=== PATIENT | female | born 1940 | race African-American/Black ===

== ENCOUNTER 2020-09-29 22:13 | Emergency (ER) | payer OTHER ==
[~2020-09-29] VITALS: Ht 157.5 cm; Wt 55.3 kg
[2020-09-29 23:32] LABS: ABSOLUTE NEUTROPHILS 3.5 thou/uL (1.4-8.2); BASOPHILS 0.5 % (0.0-2.0); EOSINOPHILS 1.3 % (0.0-3.0); HEMATOCRIT 38.5 % (37.0-47.0); HEMOGLOBIN 12.4 gm/dL (12.0-15.0); MCHC 32.2 g/dL (28.0-37.0); MCV 93.3 fL (80.0-100.0); MONOCYTES 10.8 % (1.0-8.0); PLATELET COUNT 168 thou/uL (150-400); POLYS 66.4 % (36.0-66.0); RBC 4.12 mil/uL (4.20-5.00); RDW 13.7 % (10.5-14.5); WBC 5.3 thou/uL (4.0-11.0)
[2020-09-29 23:37] LABS: ANION GAP 6 mmol/L (7-16); BUN 23 mg/dL (7-18); CALCIUM 9.2 mg/dL (8.5-10.1); CHLORIDE 104 mmol/L (98-107); CO2 31 mmol/L (21-32); CREATININE 1.1 mg/dL (0.6-1.0); GLUCOSE 123 mg/dL (74-106); POTASSIUM 4.1 mmol/L (3.5-5.1); SODIUM 141 mmol/L (136-145)
[2020-09-29 23:51] LABS: ALBUMIN 3.2 g/dL (3.4-5.0); LIPASE 33 U/L (73-393); SGOT 22 U/L (15-37); SGPT 19 U/L (14-59); TOTAL BILIRUBIN 0.2 mg/dL (0.2-1.0); TROPONIN-I <0.06 ng/mL (<0.06)
[2020-09-30 00:45] LABS: URINE BILIRUBIN NEGATIVE (Negative); URINE BLOOD NEGATIVE (Negative); URINE CLARITY CLEAR; URINE COLOR YELLOW; URINE GLUCOSE-RANDOM* NEGATIVE (Negative); URINE KETONES TRACE (Negative); URINE NITRITE-REFLEX NEGATIVE (Negative); URINE PROTEIN (DIPSTICK) NEGATIVE (Negative); URINE SPECIFIC GRAVITY 1.025 (1.005-1.035)
[2020-09-30 00:56] LABS: URINE LEUKOCYTES-REFLEX 2+ (Negative)
[2020-09-30 01:14] LABS: BACTERIA-REFLEX 1-9 Few /HPF (None Seen); CASTS None Seen /LPF (None Seen); CRYSTALS None Seen /LPF (None Seen); MUCUS 0-3 Light strn/LPF (None Seen); SQUAMOUS 4-10 Moderate /LPF (0-3); URINE RBC 0-2 Rare /HPF (0-2)
[2020-09-30] MEDS ORDERED: KEFLEX500 M1 PO (01:20)
[2020-09-30 02:05] VITALS: BP 134/65
--- NOTE | 2020-09-30 07:16 | EKG ---
[address] [address] ELECTROCARDIOGRAM REPORT Name: BRICE JOSHUA Room #: [facility]#: [id number] Admission: 09/29/20 Attend Phys: Discharge: 09/30/20 Date of : 38 Report #: [id number] [facility] ED Test Date: 2020-09-29 Test Time: 22:42:29 Pat Name: BRICE JOSHUA Department: Room: Gender: F Hedis Abstractor: [email or web address] : 1940 Requested By: Filemon Lua Order Number: [id number] MD: Geo Downey Measurements Intervals Andrews Rate: 61 P: 53 WY: 233 QRS: -5 QRSD: 100 T: 19 QT: 387 QTc: 390 Interpretive Statements Sinus rhythm Prolonged WY interval No previous ECG available for comparison Electronically Signed On 09-30-2020 7:16:45 SAW FILER by Geo Downey [email or web address] <ELECTRONICALLY SIGNED> By: Geo Downey MD, [facility] 09/30/20 0716 [id number] Geo Downey MD, FACC /EPI
== END 2020-09-30 02:06 | disposition home or self-care (01) ==
LOC: ER 22:13
PROVIDERS: Emergency Medicine
DX: R53.1 Weakness (principal); Z20.828 Contact with and (suspected) exposure to other viral communicable diseases; R10.84 Generalized abdominal pain; G89.29 Other chronic pain

== ENCOUNTER 2021-09-10 17:48 | Emergency (ER) | payer OTHER ==
[~2021-09-10 17:48] MED LIST: KEFLEX500 M1 PO
== END 2021-09-10 18:15 | disposition left against medical advice (07) ==
LOC: ER 17:48
DX: M54.50 Low back pain, unspecified (principal); Z53.21 Procedure and treatment not carried out due to patient leaving prior to being seen by health care provider

== ENCOUNTER 2021-10-09 14:10 | Inpatient (IN) | payer OTHER ==
[~2021-10-09] VITALS: Ht 160 cm; Wt 46.1 kg
[2021-10-09] VITALS (18 sets, daily range): BP systolic 90–174; BP diastolic 50–131
--- NOTE | ~2021-10-09 | EMS ---
[place] [address] EMS Patient Care Report Name: BRICE JOSHUA Room #: PRE M.R.#: [id number] Admission: Attend Phys: Discharge: Date of : 38 Report #: [id number] THIS REPORT FOR: //name// Report Transmitted: 10/09/2021 14:01 EMS Care Summary [place], [place]/[facility] Incident [id number] @ 10/09/2021 13:49 Incident Location [address] [place] [address] Patient BRICE JOSHUA Female, 80 Years 1940 Patient Address [address] [place] [address] Patient History Back Surgery, Patient Allergies No known allergies, Patient Medications Morphine, Oxycodone, Chief Complaint Suspected stroke Disposition Transported Lights/[place] Dispatch Reason Stroke/CVA Transported To [facility] Narrative Arrived on scene to find our patient seated in a chair in the kitchen of the home. The calling alliance party stated he had been sitting been with the patient when she developed a sudden onset of right side facial droop, right sided paralysis, and an inability to speak. Calling alliance party stated this happened approximately [place] [id number] EMS Patient Care Report Name: BRICE JOSHUA Room #: PRE Sanam#: [id number] Admission: Attend Phys: Discharge: Date of : 38 Report #: [id number] 5-10 minutes prior to EMS arrival. Calling alliance party stated he did not know if the patient was on any blood thinners and stated the patient had not been complaining of any symptoms prior to the onset of the facial droop. Upon our arrival patient had significant right sided facial droop, complete right sided hemiplegia, aphasia, and a right sided gaze. Patient carried to the cot. Vital signs, 3 lead EKG, glucose, and IV access obtained. Transport initiated and patient transported to receiving facility and transferred to the CT scanner. Initial Vitals @14:04P: 64, @14:01P: 38, @14:04P: 138,BP: 145/73, @14:05P: 61,R: 12,BP: 132/70,GCS: 9,SpO2: 96,Revised Trauma: 11, @14:01P: 63,R: 12,BP: 132/70,GCS: 9,Glucose: 174,SpO2: 98,Revised Trauma: 11, Assessments @13:55MENTAL:SKIN:HEENT:Eyes: Right: Other,Eyes: Left: Other,Head/Face: Facial Droop,Neck/Airway: No Abnormalities,LUNG SOUNDS:Left Upper: No Abnormalities,Right Upper: No Abnormalities,Left Lower: No Abnormalities,Right Lower: No Abnormalities,ABDOMEN:Left Upper: No Abnormalities,Right Upper: No Abnormalities,Left Lower: No Abnormalities,Right Lower: No Abnormalities,PELVIS//GI:No Abnormalities,EXTREMITIES:Right Leg: Paralysis,Right Arm: Paralysis,Left Arm: No Abnormalities,Left Leg: No Abnormalities,PULSE:Radial: 2+ Normal,NEURO:Facial Droop,Weakness Right-Sided, Impression Stroke Procedures @13:55 ALS Assessment Response: UnchangedSucceeded @13:59 IV Therapy - Saline Lock 10cc (20 ga) Site: Antecubital-Left Response: UnchangedSucceeded @14:03 IV Therapy - Saline Lock 0cc (20 ga) Site: Antecubital-Right Response: UnchangedFailed @14:07 IV Therapy - Saline Lock 10cc (20 ga) Site: Forearm-Right Response: UnchangedSucceeded @13:59 3-Lead ECG Response: UnchangedSucceeded Timeline 13:47,Call Received 13:47,Dispatch Notified 13:49,Dispatched 13:50,En Route 13:54,[place] [address] EMS Patient Care Report Name: TRESBRICEDAHLIA CARRILLO Room #: [facility] MMan.#: [id number] Admission: Attend Phys: Discharge: Date of : 38 Report #: [id number] 13:55,At Patient 13:55,ALS Assessment,Response: UnchangedSucceeded, 13:59,IV Therapy - Saline Lock 10cc 20 ga Site: Antecubital-Left,Response: UnchangedSucceeded, 13:59,3-Lead ECG,Response: UnchangedSucceeded, 14:01,BP: / M,PULSE: 38,RR: R,SPO2: Ox,ETCO2: ,BG: ,PAIN: ,GCS: , 14:01,BP: 132/70 M,PULSE: 63,RR: 12 R,SPO2: 98 Ox,ETCO2: ,B,PAIN: ,GCS: 9, 14:01,Depart Scene 14:03,IV Therapy - Saline Lock 0cc 20 ga Site: Antecubital-Right,Response: UnchangedFailed, 14:04,BP: 145/73 M,PULSE: 138,RR: R,SPO2: Ox,ETCO2: ,BG: ,PAIN: ,GCS: , 14:04,BP: / M,PULSE: 64,RR: R,SPO2: Ox,ETCO2: ,BG: ,PAIN: ,GCS: , 14:05,BP: 132/70 M,PULSE: 61,RR: 12 R,SPO2: 96 Ox,ETCO2: ,BG: ,PAIN: ,GCS: 9, 14:07,IV Therapy - Saline Lock 10cc 20 ga Site: Forearm-Right,Response: UnchangedSucceeded, 14:09,At Destination 14:44,Call Closed Disclaimer v1.1 Copyright 2021 [employer] This EMS Care Summary contains data elements from the applicable legal record (which may be displayed differently). It is designed to provide pertinent information for the following purposes: continuity of care, clinical quality, and state data reporting. The complete legal record is available to ED staff and administrators of the receiving hospital in [employer] Patient Tracker. All data is provided "as is."
--- NOTE | ~2021-10-09 | EMS ---
[address] [address] EMS Patient Care Report Name: BRICE JOSHUA Room #: 170-8 ADM IN M.R.#: [id number] Admission: 10/09/21 Attend Phys: Cyndi Garnett Discharge: Date of : 38 Report #: [id number] THIS REPORT FOR: //name// Report Transmitted: 10/09/2021 15:04 EMS Care Summary [place], [place]/[facility] Incident [id number] @ 10/09/2021 13:49 Incident Location [address] [place] [address] Patient BRICE JOSHUA Female, 80 Years 1940 Patient Address [address] [place] [address] Patient History Back Surgery, Patient Allergies No known allergies, Patient Medications Morphine, Oxycodone, Chief Complaint Suspected stroke Disposition Transported Lights/[place] Dispatch Reason Stroke/CVA Transported To [facility] Narrative Arrived on scene to find our patient seated in a chair in the kitchen of the home. The calling libertarian stated he had been sitting been with the patient when she developed a sudden onset of right side facial droop, right sided paralysis, and an inability to speak. Calling libertarian stated this happened approximately [address] [address] EMS Patient Care Report Name: BRICE JOSHUA Room #: 170-8 ADM IN M.R.#: [id number] Admission: 10/09/21 Attend Phys: Cyndi Garnett Discharge: Date of : 38 Report #: [id number] 5-10 minutes prior to EMS arrival. Calling libertarian stated he did not know if the patient was on any blood thinners and stated the patient had not been complaining of any symptoms prior to the onset of the facial droop. Upon our arrival patient had significant right sided facial droop, complete right sided hemiplegia, aphasia, and a right sided gaze. Patient carried to the cot. Vital signs, 3 lead EKG, glucose, and IV access obtained. Transport initiated and patient transported to receiving facility and transferred to the CT scanner. Initial Vitals @14:04P: 64, @14:01P: 38, @14:04P: 138,BP: 145/73, @14:05P: 61,R: 12,BP: 132/70,GCS: 9,SpO2: 96,Revised Trauma: 11, @14:01P: 63,R: 12,BP: 132/70,GCS: 9,Glucose: 174,SpO2: 98,Revised Trauma: 11, Assessments @13:55MENTAL:SKIN:HEENT:Eyes: Right: Other,Eyes: Left: Other,Head/Face: Facial Droop,Neck/Airway: No Abnormalities,LUNG SOUNDS:Left Upper: No Abnormalities,Right Upper: No Abnormalities,Left Lower: No Abnormalities,Right Lower: No Abnormalities,ABDOMEN:Left Upper: No Abnormalities,Right Upper: No Abnormalities,Left Lower: No Abnormalities,Right Lower: No Abnormalities,PELVIS//GI:No Abnormalities,EXTREMITIES:Right Leg: Paralysis,Right Arm: Paralysis,Left Arm: No Abnormalities,Left Leg: No Abnormalities,PULSE:Radial: 2+ Normal,NEURO:Facial Droop,Weakness Right-Sided, Impression Stroke Procedures @13:55 ALS Assessment Response: UnchangedSucceeded @13:59 IV Therapy - Saline Lock 10cc (20 ga) Site: Antecubital-Left Response: UnchangedSucceeded @14:03 IV Therapy - Saline Lock 0cc (20 ga) Site: Antecubital-Right Response: UnchangedFailed @14:07 IV Therapy - Saline Lock 10cc (20 ga) Site: Forearm-Right Response: UnchangedSucceeded @13:59 3-Lead ECG Response: UnchangedSucceeded Timeline 13:47,Call Received 13:47,Dispatch Notified 13:49,Dispatched 13:50,En Route 13:54,[place] [address] EMS Patient Care Report Name: BRICE JOSHUA Room #: 170-8 ADM IN [facility]#: [id number] Admission: 10/09/21 Attend Phys: Cyndi Garnett Discharge: Date of : 38 Report #: [id number] 13:55,At Patient 13:55,ALS Assessment,Response: UnchangedSucceeded, 13:59,IV Therapy - Saline Lock 10cc 20 ga Site: Antecubital-Left,Response: UnchangedSucceeded, 13:59,3-Lead ECG,Response: UnchangedSucceeded, 14:01,BP: / M,PULSE: 38,RR: R,SPO2: Ox,ETCO2: ,BG: ,PAIN: ,GCS: , 14:01,BP: 132/70 M,PULSE: 63,RR: 12 R,SPO2: 98 Ox,ETCO2: ,B,PAIN: ,GCS: 9, 14:01,Depart Scene 14:03,IV Therapy - Saline Lock 0cc 20 ga Site: Antecubital-Right,Response: UnchangedFailed, 14:04,BP: 145/73 M,PULSE: 138,RR: R,SPO2: Ox,ETCO2: ,BG: ,PAIN: ,GCS: , 14:04,BP: / M,PULSE: 64,RR: R,SPO2: Ox,ETCO2: ,BG: ,PAIN: ,GCS: , 14:05,BP: 132/70 M,PULSE: 61,RR: 12 R,SPO2: 96 Ox,ETCO2: ,BG: ,PAIN: ,GCS: 9, 14:07,IV Therapy - Saline Lock 10cc 20 ga Site: Forearm-Right,Response: UnchangedSucceeded, 14:09,At Destination 14:44,Call Closed Disclaimer v1.1 Copyright 2021 [employer] This EMS Care Summary contains data elements from the applicable legal record (which may be displayed differently). It is designed to provide pertinent information for the following purposes: continuity of care, clinical quality, and state data reporting. The complete legal record is available to ED staff and administrators of the receiving hospital in [employer] Patient Tracker. All data is provided "as is."
--- NOTE | ~2021-10-09 | HC ---
[facility] [place] [address] CONSULTATION Name: BRICE JOSHUA Room #: 238-P ADM IN M.R.#: [id number] Admission: 10/09/21 Attend Phys: Cyndi Garnett Discharge: Date of : 38 Report #: [id number] THIS REPORT FOR: cc: Prasad Jacobson. Prasad Ayon. Evert Graham MD ~ DATE OF SERVICE: 10/10/2021 HISTORY OF PRESENT ILLNESS: This is an 80-year-old female patient who does not provide any reliable history. She appeared to be aphasic. I called the patient's son, he did not answer his phone, so I was not able to reach him. So the history is from the records as well as talking to the nurse looking after this patient. The patient has presented with a right side of the face starting to droop and speech difficulty. She was evaluated by [facility] and looks like they gave TPA to the patient. One of the record says she takes multiple medications for the pains including morphine and Oxycontin. REVIEW OF SYSTEMS: From the records. The patient apparently has a nerve stimulator in the back from the record. She has a thyroid problem. She has urinary problem. She has degenerative joint disease. She has chronic pain. That is all the history I can get on this patient from the records and trying to talk to her, which did not get us anywhere. PAST MEDICAL HISTORY: Positive for back pain for which she takes multiple medications. FAMILY HISTORY: Negative for early age stroke. SOCIAL HISTORY: She does not smoke or drink alcohol. PHYSICAL EXAMINATION: Indicate she is alert. She is responsive. She could not tell me what month it is. She in fact talks then she garbled her speech after that. She did not follow the instructions properly and persistently to carry out any worthwhile exam on this patient, but we tried and the best I can tell, she does not appear to have any definite cranial nerve abnormality. Visual field examination is tentative and facial exam is tentative, but does not look like she has any gross cranial nerve problem. Similarly, neuromuscular examination was carried out and does not appear that she had any focal deficit there. She does not have any carotid bruit, no meningeal sign. She does not appear to be ataxic. She did not cooperate with the fundus examination. There does not appear to be any atrial fibrillation. No respiratory difficulty. Blood pressure is 126/59, pulse is 54 and temperature is 98.3. Labs indicate a white count of 4.9 and potassium of 3.4. She has no edema. Pulses appeared to be palpable, also difficult to feel. She is moderately built individual. I think her hearing and vision looks adequate. She had a CT which [facility] [address] [place] [address] CONSULTATION Name: BRICE JOSHUA Room #: 238-P [facility] IN M.R.#: [id number] Admission: 10/09/21 Attend Phys: Cyndi Garnett Discharge: Date of : 38 Report #: [id number] showed a question of stroke on the left side, CT angiogram, which is mostly unremarkable. IMPRESSION: This patient's clinical presentation is consistent with an ischemic event in the left cerebral hemisphere. She received TPA. I do not think she can have an MRI if the history of having a nerve stimulator is correct. We will continue to make an effort to reach the family. Otherwise, we have to presume that it was a stroke and wait for other workup. We will repeat the CT 24 hours after the TPA and then can start her on antiplatelet therapy with aspirin as well as probably DVT prophylaxis. She will be evaluated by PT, OT and further workup will depend upon that. I spent more than 50 minutes of time taking care of this patient and majority was spent in coordinating care, reviewing the records, reviewing the imaging studies. I will continue to make an effort to reach the family. By: 1442 22 Evert Mahoney MD /nt
[2021-10-09 14:34] LABS: ABSOLUTE NEUTROPHILS 2.8 thou/uL (1.4-8.2); BASOPHILS 0.9 % (0.0-2.0); EOSINOPHILS 0.4 % (0.0-3.0); HEMATOCRIT 43.8 % (37.0-47.0); HEMOGLOBIN 13.8 gm/dL (12.0-15.0); LYMPHOCYTES 29.4 % (24.0-44.0); MCH 30.3 pg (26.0-34.0); MCHC 31.5 g/dL (28.0-37.0); MCV 96.3 fL (80.0-100.0); MONOCYTES 11.9 % (1.0-8.0); PLATELET COUNT 166 thou/uL (150-400); POLYS 57.4 % (36.0-66.0); RBC 4.54 mil/uL (4.20-5.00); RDW 14.2 % (10.5-14.5); WBC 4.9 thou/uL (4.0-11.0)
[2021-10-09 14:48] LABS: APTT 28.5 Seconds (24.5-32.8); INR 1.14; PROTIME 12.4 Seconds (10.5-12.1)
[2021-10-09] MEDS ORDERED: OXYCODONE HCL10 MG PO (15:13)
[2021-10-09] MEDS ORDERED: MS CONTIN 30 MG30 M1 PO (15:13)
[2021-10-09] MEDS ORDERED: SOLIFENACIN SUCC5 MG PO (15:14)
[2021-10-09] MEDS ORDERED: LEVOTHYROXINE75 MCG PO (15:14)
[2021-10-09] MEDS ORDERED: OXYBUTYNIN 5 MG5 M2 PO (15:14)
[2021-10-09 16:29] LABS: URINE BILIRUBIN NEGATIVE (Negative); URINE BLOOD 2+ (Negative); URINE CLARITY SL CLOUDY; URINE COLOR YELLOW; URINE GLUCOSE-RANDOM* NEGATIVE (Negative); URINE KETONES NEGATIVE (Negative); URINE LEUKOCYTES-REFLEX TRACE (Negative); URINE NITRITE-REFLEX NEGATIVE (Negative); URINE PROTEIN (DIPSTICK) NEGATIVE (Negative); URINE UROBILINOGEN 0.2 E.U./dl (0.2-1.0)
[2021-10-09 16:48] LABS: CASTS None Seen /LPF (None Seen); MUCUS 4-6 Moderate strn/LPF (None Seen); SQUAMOUS 0-3 Few /LPF (0-3); URINE WBC-REFLEX 0-5 Rare /HPF (0-5)
[2021-10-09 16:49] LABS: BACTERIA-REFLEX 1-9 Few /HPF (None Seen); CRYSTALS None Seen /LPF (None Seen)
[2021-10-09 17:28] LABS: ALBUMIN 3.4 g/dL (3.4-5.0); CALCIUM 8.5 mg/dL (8.5-10.1); CREATININE 0.7 mg/dL (0.6-1.0); POTASSIUM 3.4 mmol/L (3.5-5.1); TOTAL BILIRUBIN 0.3 mg/dL (0.2-1.0); TOTAL PROTEIN 6.8 g/dL (6.4-8.2)
--- NOTE | 2021-10-09 19:29 | NUR ---
PATIENT ARIVED TO UNIT AT 1658. REPORT WAS RECEIVED AND ASSESSMENTS WERE DONE AND CARTED. PATIENT IS TRYING TO PULL THINGS OFF. SHE WAS ABLE TO GET HER 02 SENSOR OFF TO START WAS REPLACED. NEXT SHE WAS ABLE TO GET HER LEADS OFF AND IV OUT AND 02 SENSOR OFF. REPORT WAS GIVEN TO NIGHT RN.PATIENT IS RESTING IN BED WITH CALL DUBOSE IN REACH.
--- NOTE | 2021-10-09 20:42 | EKG ---
[place] [address] [place] [address] ELECTROCARDIOGRAM REPORT Name: BRICE JOSHUA Room #: 238-P ADM IN M.R.#: [id number] Admission: 10/09/21 Attend Phys: Cyndi Garnett Discharge: Date of : 38 Report #: [id number] [facility] ED Test Date: 2021-10-09 Test Time: 15:00:26 Pat Name: BRICE JOSHUA Department: Room: 238 Gender: F Ui Architect: MAHAMED : 1940 Requested By: Filemon Lua Order Number: [id number] MD: Erasmo Ramires Measurements Intervals Mathias Rate: 85 P: RI: QRS: 12 QRSD: 183 T: 45 QT: 456 QTc: 543 Interpretive Statements Sinus rhythm with first-degree AV block Baseline artifact Compared to ECG 09/29/2020 22:42:29 No gross differences Electronically Signed On 10-09-2021 20:41:35 CAFETERIA CLERK by Erasmo Ramires [email or web address] <ELECTRONICALLY SIGNED> By: Erasmo Ramires MD, [facility] 10/09/212040 1500 [facility] Erasmo Ramires MD, FACC /EPI
[2021-10-10] VITALS (36 sets, daily range): BP systolic 116–177; BP diastolic 44–105
--- NOTE | 2021-10-10 19:53 | NUR ---
PATIENT CAN NOT STILL SAY THE RIGHT WORD FOR THINGS. SHE KNOW HER NAME AND DATE OF WHEN TOLD THEM BUT CAN NOT TELL YOU WHAT THEY ARE. SHE IS ABLE TO MOVE ALL EXTREMITIES WITH OUT PROBLEMS. SHE WAS ABLE TO MOVE HER SELF FROM THE BED TO THE CT TABLE AND BACK TO THE BED. SHE IS FORGETFUL AND PULLED OUT HER IV, SHE HAS TAKEN OFF THE BP CUFF AND SCD'S A FEW TIMES TODAY WELL. NEW IV WAS PLACED IN THE RIGHT FORARM 22G AND ARM WAS WRAPED TO TRY AND HELP WITH THIS. FAMILY DID CALL TODAY AND SON WAS GIVEN UPDATE. PATIENT IS NPO AT THIS TIME, I DID NOT TRY AND LET HER STAND AT BED SIDE BUT SHE DID HAVE EQUAL PRESSURE WHEN PUSHING ON HANDS AND SQUEEZING MY HANDS. DEISY IS RESTING IN BED WITH CALL DUBOSE IN REACH.
[2021-10-11] VITALS (37 sets, daily range): BP systolic 116–161; BP diastolic 45–99
[2021-10-11 04:13] LABS: ALBUMIN 2.9 g/dL (3.4-5.0); ANION GAP 6 mmol/L (7-16); BUN 5 mg/dL (7-18); CHLORIDE 108 mmol/L (98-107); CHOLESTEROL 116 mg/dL (<200); CO2 29 mmol/L (21-32); CREATININE 0.7 mg/dL (0.6-1.0); GLUCOSE 146 mg/dL (74-106); HDL CHOLESTEROL 40 mg/dL (>40); LDL CHOLESTEROL 67 mg/dL (<100); MAGNESIUM 2.1 mg/dL (1.8-2.4); PHOSPHORUS 2.8 mg/dL (2.5-4.9); POTASSIUM 3.3 mmol/L (3.5-5.1); SODIUM 143 mmol/L (136-145); TC:HDL 2.9 Ratio (Not establshd); TRIGLYCERIDE 48 mg/dL (<150); VLDL 10 mg/dL (<40)
[2021-10-11 04:18] LABS: SERUM ASSESSMENT Clear
--- NOTE | 2021-10-11 06:30 | NUR ---
PATIENT SLOWLY PROGRESSING TOWARD GOALS AND POC. PATIENT NIH SCORE 4, CONTINUES TO PRESENT DYSPHASIC. PATIENT ALERT AND COOPERATIVE BUT CONFUSED. PATIENT URINE OUTPUT ADEQUATE AND NO BM OVERNOC. PATIENT NSB THROUGHOUT MOST OF THE NOC BUT WHEN AWAKE HR 50-60S. PATIENT REMAINS NPO. WILL CONTINUE TO MONITOR AND FOLLOW POC.
--- NOTE | 2021-10-11 06:37 | NUR ---
SPOKE WITH Sg SEGOVIA D/T PATIENT K+ LOW. ORDERS GIVEN FOR ONETIME KCL IVPB.
--- NOTE | 2021-10-11 08:00 | NUR ---
80 year old family. Covid +. Enhanced Isolation. Syncopal, weakness, fatigue facial drooping and unable to speak. Family reported she was fine the day before. Unable to visit with Danika related to isolation for covid. Possible will having MRI of her head. Speech eval today. Will cont. following as needed.
--- NOTE | 2021-10-11 09:43 | NUR ---
DISCUSSED PLAN FOR MRI [facility]. PT WILL HAVE TO BE THE LAST SCAN OF THE DAY DUE TO POSITIVE COVID STATUS, POSSIBLY LATER TODAY DEPENDING ON NUMBER OF PATIENTS REQUIRING SCANS.
--- NOTE | 2021-10-11 09:46 | NUR ---
0845: DISCUSSED PATIENT WITH DR. DIAZ DURING INTERDISCIPLINARY ROUNDS. NOTIFIED HIM PT HAD DIFFICULTY WITH NIGHT RN DURING ATTEMPT TO ADMINISTER ONE MEDICATION. ALSO DISCUSSED PLANS TO HAVE ELEVATOR MECHANIC APPRENTICE REEVAL SWALLOW TODAY. PLAN FOR TRANSFER TO THE FLOOR IF BED BECOMES AVAILABLE.
--- NOTE | 2021-10-11 10:40 | NUR ---
RN ATTEMTPED TO CALL PT'S SON, ANIGE, WITH TELEPHONE NUMBER IN PT'S CHART, . NUMBER IS NOT CURRENTLY IN SERVICE. PT HAS HISTORY OF NERVE STIMULATOR, THUS UNSURE IF IT IS STILL PRESENT AND/OR MRI COMPATIBLE. PT UNABLE TO PROVIDE THIS HISTORY AT THIS TIME DUE TO CURRENT CONDITION. MRI NOTIFIED.
--- NOTE | 2021-10-11 12:12 | NUR ---
SPEECH THERAPY AT BEDSIDE
--- NOTE | 2021-10-11 14:28 | NUR ---
RN ATTEMTPED TO CALL PT'S SON, ANGIE [phone] AT THIS TIME WITH NO ANSWER. WILL ATTEMPT AGAIN AT LATER TIME
--- NOTE | 2021-10-11 14:41 | NUR ---
1440: RN CALLED PT'S SON, ANGIE. UPDATED HIM ON CURRENT PLAN OF CARE INCLUDING DIET CHANGES, PT, OT EVALS, AND PLAN FOR TRANSFER TO FLOOR ONCE BED AVAIALBLE.
--- NOTE | 2021-10-11 18:55 | NUR ---
WHEN RN DISCUSSED POC WITH PT'S SON ANGIE, HE CONFIRMED THAT PT HAS A NERVE STIMULATOR IN HER BACK. RN EDUCATED HIM THAT PT IS UNABLE TO HAVE MRI DUE TO THIS, HE VERBALIZED UNDERSTANDING.
--- NOTE | 2021-10-11 21:15 | NUR ---
ORDERS FOR TRANSFER - REPORT CALLED TO 3W. PATIENT BELONGINGS AND CHART SENT WITH PATIENT.
--- NOTE | 2021-10-11 22:02 | NUR ---
PATIENT PROGRESSING WELL TOWARDS GOALS AND POC. NIH SCORE 3. PATIENT STILL CONTINUES TO BE APHASIC. PATIENT CAN ANSWER YES/NO QUESTIONS AND IS COOPERATIVE WITH CARE. PATIENT MOVES ALL EXTREMITIES WELL. ASSISTED PATIENT IN THE ADMINISTRATION OF NIGHTLY MEDS AND GIVEN SMALL SIPS OF WATER - TOOK SEVERAL TRIES FOR PATIENT TO SWALLOW PILLS.
[2021-10-12 03:25] VITALS: BP 158/90
--- NOTE | 2021-10-12 06:27 | NUR ---
Patinet making progress towards outcome goals. Vital signs and rhythm stable. Elena catheter removed at 0615. Tolerated thin liquids, IVFluids infusing. Expressive aphasia, moving all extremities without difficulty. Managed to pull IV out and cannot recall she did it. High fall risks, fall precautions in place. Rehab consult.
[2021-10-12 08:24] VITALS: BP 146/80
--- NOTE | 2021-10-12 09:46 | 2DMMODE ---
[facility] [address] [address] 2 D/M-MODE ECHOCARDIOGRAM Name: BRICE JOSHUA Room #: 364-P ADM IN M.R.#: [id number] Admission: 10/09/21 Attend Phys: Cyndi Garnett Discharge: Date of : 38 Report #: [id number] THIS REPORT FOR: cc: Ratnesh. MD Kavon Jacobson Ratnesh. MD Santiago, Patrick MD [facility] ~ APPROVED REPORT Study performed: 10/12/2021 08:54:34 EXAM: Limited 2D, Doppler, and color-flow Echocardiogram Patient Location: Bedside Room #: 364 Status: routine BSA: 1.45 HR: 70 bpm BP: 146/80 mmHg Rhythm: NSR Other Information Study Quality: Adequate Technically limited study due to uncooperative patient. Patient movement. Indications CVA, HTN, COVID + Echo Enhancing Agent Indication: Rule out Shunt Agent(s) / Amount(s) Used: Agitated Saline 7 cc 2D Dimensions IVSd: 9.63 (7-11mm) LVDd: 32.39 mm PWd: 9.51 (7-11mm) LVDs: 20.61 (25-40mm) Aortic Root: 28.53 mm Aortic Valve AoV Peak Kehinde.: 1.00 m/s AO Peak Gr.: 4.81 mmHg Mitral Valve E/A Ratio: 0.7 MV Decel. Time: 222.10 ms [facility] [address] [place] [address] 2 D/M-MODE ECHOCARDIOGRAM Name: BRICE JOSHUA Room #: 364-P ADM IN M.R.#: [id number] Admission: 10/09/21 Attend Phys: yCndi Sanchez Discharge: Date of : 36 Report #: [id number] MV E Max Kehinde.: 0.60 m/s MV A Kehinde.: 0.86 m/s MV PHT: 64.41 ms Tricuspid Valve TR Peak Kehinde.: 2.38 m/s RAP Estimate: 5.00 mmHg TR Peak Gr.: 23.00 mmHg PA Pressure: 28.00 mmHg Left Ventricle The left ventricle is normal size. There is normal LV segmental wall motion. Mild concentric left ventricular hypertrophy. Left ventricular systolic function is normal. LVEF is 60-65%. Mild diastolic dysfunction is present. Right Ventricle The right ventricle is normal size. The right ventricular systolic function is normal. Atria The left atrium size is normal. The right atrium size is normal. No shunting noted with contrast bubble injection. Aortic Valve The aortic valve is normal in structure. No aortic regurgitation is present. There is no aortic valvular stenosis. Mitral Valve The mitral valve is normal in structure. Trace mitral regurgitation. Tricuspid Valve The tricuspid valve is normal in structure. Mild to moderate tricuspid regurgitation. Estimated PAP is 28mmHg. Pulmonic Valve Pulmonic valve is not well visualized. Great Vessels The aortic root is normal in size. IVC is normal in size and collapses >50% with inspiration. Pericardium There is no pericardial effusion. <Conclusion> [facility] [address] [place] [address] 2 D/M-MODE ECHOCARDIOGRAM Name: TRESBRICE GERARDO Room #: 364-P [facility] IN M.R.#: [id number] Admission: 10/09/21 Attend Phys: Cyndi Sanchez Discharge: Date of : 36 Report #: [id number] Normal left ventricle size with mild concentric hypertrophy Hyperdynamic systolic function ejection fraction 65% Grade 1 diastolic dysfunction Normal right ventricular size/function Normal atrial size Normal aortic/mitral valve structure and function No pericardial effusion Mild tricuspid valve insufficiency Pulmonary systolic pressure estimated 28 mmHg Normal aortic root size. No shunt detected by bubble study <ELECTRONICALLY SIGNED> By: Geo Downey MD, FACC 10/12/21945 5 5 Geo Downey MD, FACC /INF
--- NOTE | 2021-10-12 10:03 | EKG ---
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 10/12/21923 5 5 Geo Downey MD, FACC /EPI
[2021-10-12] MEDS ORDERED: ENOXAPARIN40 MG/0.4 SUBQ (11:43)
[2021-10-12] MEDS ORDERED: LIPITOR40 MG PO (11:43)
[2021-10-12] MEDS ORDERED: ADULT LOW DOSE81 MG PO (11:44)
--- NOTE | 2021-10-12 14:07 | NUR ---
DISCHARGE NOTE: COTY reviewed chart and spoke with nursing and attending physician. Pt was transferred to 3W from ICU. Pt remains in Enhanced Isolation due to COVID. Pt is afebrile and on room air. 5N consult ordered. COTY notified by 5N director of cardiac rehabilitation that pt has been accepted to 5N. SW updated attending physician. Pt is medically stable to discharge to 5N today. Pt will remain on 3W until out of isolation. COTY placed call to pt's room. No answer. COTY spoke with pt's on, Marky, via phone to provide update. Marky is agreeable with plan to stay for rehab. Today is pt's birthday. Marky asked if he can visit or bring pt something for her birthday. COTY explained visitor policy for COVID pts. COTY requested nursing call Marky to discuss if pt is able to have items brought to her. Discharge orders completed for pt to be made rehab status today. COTY explained to Marky that the rehab team conference will on afternoon. Discharge plan is for pt to discharge home when medically stable. Rehab CM to follow and assist as needed with discharge planning.
== END 2021-10-12 18:12 | DRG 61 ==
LOC: ER 14:10 → ICU 15:17 → EROBS 15:17 → 3W 15:17 → ICU 16:58 → 3W 10-11 21:27
PROVIDERS: Emergency Medicine; ADMIT Hospitalist; ATTEND Hospitalist
DX: I63.9 Cerebral infarction, unspecified (principal); U07.1 COVID-19; G81.94 Hemiplegia, unspecified affecting left nondominant side; G89.29 Other chronic pain; M47.9 Spondylosis, unspecified; M54.9 Dorsalgia, unspecified; R53.81 Other malaise; R47.01 Aphasia; R48.2 Apraxia; Z79.82 Long term (current) use of aspirin; Z82.49 Family history of ischemic heart disease and other diseases of the circulatory system; Z79.899 Other long term (current) drug therapy
CPT/HCPCS: 10078; 10879

== ENCOUNTER 2021-10-12 11:56 | Inpatient (IN) | payer OTHER ==
[~2021-10-12] VITALS: Ht 165.1 cm; Wt 46.7 kg
[~2021-10-12 11:56] MED LIST changes: +ADULT LOW DOSE81 MG PO; +ENOXAPARIN40 MG/0.4 SUBQ; +LEVOTHYROXINE75 MCG PO; +LIPITOR40 MG PO; +MS CONTIN 30 MG30 M1 PO; +OXYBUTYNIN 5 MG5 M2 PO; +OXYCODONE HCL10 MG PO; +SOLIFENACIN SUCC5 MG PO
[2021-10-12 19:51] VITALS: BP 153/68
--- NOTE | 2021-10-13 05:45 | NUR ---
ASSUMED CARE OF PT AT 1900, AT WHICH TIME PT WAS SLEEPING AND WAS NOT PARTICIPATING IN ADMISSION ASSESSMENT QUESTIONS. PT WITH EXPRESSIVE APHASIA, BUT CONTINUED TO TELL THIS DIGITAL SOLUTIONS ARCHITECT TO "JUST GO AWAY" WHEN ASKING ADMISSION QUESTIONS. VITAL SIGNS STABLE, ON ROOM AIR. UP WITH SBA TO BSC WITH STEADY GAIT. DIFFICULTY SWALLOWING PILLS. MEDICATIONS ABLE TO BE CRUSHED WERE TAKEN IN APPLESAUCE WITH NO DIFFICULTY, BUT MEDS NOT ABLE TO BE CRUSHED REQUIRED EXTENSIVE PROMPTING AND CUEING FOR PT TO BE ABLE TO SWALLOW. WILL CONTINUE TO OBSERVE FOR CHANGES
[2021-10-13 06:17] LABS: HEMATOCRIT 37.5 % (37.0-47.0); HEMOGLOBIN 12.5 gm/dL (12.0-15.0); MCH 30.8 pg (26.0-34.0); MCHC 33.4 g/dL (28.0-37.0); MCV 92.4 fL (80.0-100.0); RBC 4.06 mil/uL (4.20-5.00); RDW 13.7 % (10.5-14.5); WBC 7.1 thou/uL (4.0-11.0)
[2021-10-13 06:30] LABS: CALCIUM 8.1 mg/dL (8.5-10.1); CREATININE 0.9 mg/dL (0.6-1.0); POTASSIUM 3.2 mmol/L (3.5-5.1)
[2021-10-13 07:04] LABS: FOLIC ACID 19.2 ng/mL (8.6-58.9)
[2021-10-13 08:17] VITALS: BP 121/90
--- NOTE | 2021-10-13 10:03 | EKG ---
[address] [place] [address] ELECTROCARDIOGRAM REPORT Name: BRICE JOSHUA Room #: 364-P ADM IN M.R.#: [id number] Admission: 10/12/21 Attend Phys: Buddy Collins MD Discharge: Date of : 36 Report #: [id number] [facility] Test Date: 2021-10-13 Test Time: 09:36:21 Pat Name: BRICE JOSHUA Department: Room: 364 P Gender: F Business Coordinator: BYRON : 1940 Requested By: Elaine Davey Order Number: [id number] MD: Geo Downey Measurements Intervals [place] Rate: 59 P: 78 OR: 230 QRS: -6 QRSD: 107 T: 22 QT: 399 QTc: 396 Interpretive Statements Sinus rhythm Prolonged OR interval Borderline repolarization abnormality Compared to ECG 10/12/2021 08:16:29 No significant changes Electronically Signed On 10-13-2021 10:02:49 REINFORCEMENT MAKER by Geo Downey [email or web address] <ELECTRONICALLY SIGNED> By: Geo Downey MD, [facility] 10/13/21 1002 0936 5 Geo Downey MD, FACC /EPI
--- NOTE | 2021-10-13 11:20 | NUR ---
INITIAL REHAB ASSESSMENT: Pt was admitted to rehab on 10/12. Pt will remain on 3W until out of Enhanced Isolation. Pt had positive COVID test on 10/09. Per previous CM note, pt has received the [employer] COVID vaccination. Pt is afebrile and on room air. Pt with new CVA. SW placed call to pt's room. No answer. Pt lives at home with her son, Marky. Prior to admission, pt had been independent with ADLs. Pt's son has recently started assisting pt with her finances. There is one step to enter their home and about 20 steps down to the basement. Pt's PCP is Dr. Prasad Jacobson at [facility]. SW spoke with pt's son, Marky, yesterday. Provided update regarding admission to rehab while on 3W. SW notified Marky that team conferences are on afternoons. Discharge timeframe to be discussed. Pt's son verbalized understanding. Plan is for pt to discharge home when medically stable. CM/SW following to assist as needed with discharge planning.
[2021-10-13 11:35] VITALS: BP 107/61
[2021-10-13 15:52] VITALS: BP 106/51
--- NOTE | 2021-10-13 18:39 | NUR ---
ASSUMED PATIENT CARE AT 0700. A/O X3. FLOW COMMAND. PORGRESSING TOWARDS POC GOALS.
[2021-10-13 19:30] VITALS: BP 146/70
[2021-10-14 06:07] LABS: GLYCOHEMOGLOBIN (HGB A1C) 5.9 % (4.8-5.6)
--- NOTE | 2021-10-14 06:50 | NUR ---
PROGRESS PT A/O X4. UP WITH SBA. VOIDING QS DARK FOUL SMELLING URINE. VSS PT SLEPT MOST OF SHIFT USES CALL LIGHT APPROPRIATELY CONTINUE POC.
[2021-10-14 07:38] VITALS: BP 124/57
--- NOTE | 2021-10-14 09:50 | EKG ---
[address] [place] [address] ELECTROCARDIOGRAM REPORT Name: BRICE JOSHUA Room #: 364-P ADM IN M.R.#: [id number] Admission: 10/12/21 Attend Phys: Buddy Collins MD Discharge: Date of : 36 Report #: [id number] [facility] Test Date: 2021-10-14 Test Time: 09:06:45 Pat Name: BRICE JOSHUA Department: Room: 364 P Gender: F Line Department Supervisor: BYRON : 1940 Requested By: Elaine Davey Order Number: [id number] : Geo Downey Measurements Intervals [place] Rate: 55 P: 83 IA: 227 QRS: 17 QRSD: 88 T: 21 QT: 385 QTc: 369 Interpretive Statements Sinus rhythm Prolonged IA interval Probable left atrial enlargement Borderline T wave abnormalities Compared to ECG 10/13/2021 09:36:21 T-wave abnormality now present Electronically Signed On 10-14-2021 9:50:01 COMPANY MARKER by Geo Downey [email or web address] <ELECTRONICALLY SIGNED> By: Geo Downey MD, [facility] 10/14/2150 09 5 Geo Downey MD, FAC /EPI
--- NOTE | 2021-10-14 13:53 | NUR ---
Team meeting, recommendation: Covid enhanced isolation. dysphasia. Max assist with toilet, needs assist with cleaning. impulsive. no wounds. speaks slow. diet Mech soft and thin liquids. UA to check for UTI. Send [facility] referral if family would be able to provide transportation at ut. Reteam next week and dc on 10/21/21 wtih outpt speech if cannot start right away at [facility].
--- NOTE | 2021-10-14 18:17 | NUR ---
1805 - post void residual = 0
--- NOTE | 2021-10-14 18:22 | NUR ---
PATIENT A&OX4, UNABLE TO CONSISTANLY COMMUNICATE NEEDS, FREQUENT CHECKS BY STAFF. OOB TO CHAIR MOST OF THE DAY, SBA FOR AMBULATION NEEDS. VSS, RA. RECIEVED ORDERS FROM MD DUARTE FOLLOWS: 1. D/C BLOOD SUGAR CHECKS 2. TOILET TRAINING [id number] WHILE AWAKE 3. PREFORM POST VOID RESIDUAL BLADDER SCAN AFTER EACH VOID. NURSING COMMUNICATIONS ENTERED, WILL PASS ON IN SHIFT REPORT. FAMILY REACHED OUT TO 5N TO SPEAK TO DOCTOR AFTER HE HAD ALREADY COMPLETED HIS SHIFT. PER TUNDE, SHE WILL CONTACT MD IN AM AND ARRANGE CONTACT WITH FAMILY.
[2021-10-14 18:40] LABS: URINE BILIRUBIN NEGATIVE (Negative); URINE BLOOD 3+ (Negative); URINE CLARITY HAZY; URINE COLOR YELLOW; URINE GLUCOSE-RANDOM* NEGATIVE (Negative); URINE KETONES NEGATIVE (Negative); URINE LEUKOCYTES-REFLEX 2+ (Negative); URINE NITRITE-REFLEX NEGATIVE (Negative); URINE PROTEIN (DIPSTICK) 1+ (Negative); URINE SPECIFIC GRAVITY >= 1.030 (1.005-1.035); URINE UROBILINOGEN 0.2 E.U./dl (0.2-1.0)
[2021-10-14 18:53] LABS: SQUAMOUS 0-3 Few /LPF (0-3); URINE WBC-REFLEX >25 Many /HPF (0-5)
[2021-10-14 18:54] LABS: BACTERIA-REFLEX >30 Many /HPF (None Seen); CASTS None Seen /LPF (None Seen)
[2021-10-14 18:55] LABS: CRYSTALS None Seen /LPF (None Seen)
[2021-10-14 20:08] VITALS: BP 147/64
--- NOTE | 2021-10-15 01:15 | NUR ---
PROGRESS PT PROGRESSING TOWARDS GOALS. UP WITH SBA. GAIT STEADY VOIDING PER BSC. BLADDER SCANNED AND 210 CC'S NOTED, VOIDED 250 CC'S AND PVR WAS 0 CC'S. LUNGS CLEAR, VSS. STILL HAVING DIFFICULTY WORD FINDING AND EXPRESSING NEEDS. BUT EATING AND DRINKING WITHOUT DIFFICULTY. IN ORDERED A HEAD CT FOR TOMORROW AND SOME LABS. CONTINUE POC.
[2021-10-15 08:30] VITALS: BP 141/70
--- NOTE | 2021-10-15 10:44 | EKG ---
[address] [place] [address] ELECTROCARDIOGRAM REPORT Name: BRICE JOSHUA Room #: 364-P ADM IN M.R.#: [id number] Admission: 10/12/21 Attend Phys: Buddy Collins MD Discharge: Date of : 38 Report #: [id number] [facility] Test Date: 2021-10-15 Test Time: 10:38:06 Pat Name: BRICE JOSHUA Department: Room: 364 P Gender: F Senior Gl Accountant: CORRY : 1940 Requested By: Elaine Davey Order Number: [id number] MD: Michoacano Fay Measurements Intervals [place] Rate: 54 P: 78 AR: 221 QRS: 8 QRSD: 95 T: 34 QT: 381 QTc: 361 Interpretive Statements Sinus rhythm Prolonged AR interval Consider left atrial abnormality Nonspecific ST segment abnormalities Compared to ECG 10/14/2021 09:06:45 No change Electronically Signed On 10-15-2021 10:44:18 PELLETISING EXTRUDER OPERATOR by Michoacano Fay [email or web address] <ELECTRONICALLY SIGNED> By: Michoacano Fay MD 10/15/21 1044 1038 MD LYRIC Degroot
--- NOTE | 2021-10-15 15:13 | NUR ---
Cm spoke with patient via phone call related to covid isolation. She agrees with the discharge plan. Cm left message for son steven to return cm call. will cont following as needed.
--- NOTE | 2021-10-15 18:41 | NUR ---
ASSUMED [PATIENT CARE AT 0700. ALERT. ENCOURAGED FLUID TAKING. POOR APPATITE. SLOWLY TOWARDS POC GOALS.
[2021-10-15 19:55] VITALS: BP 121/63
--- NOTE | 2021-10-15 20:06 | NUR ---
PT UP IN CHAIR, CHAIR ALARM, BLANKET WRAPPED AROUND HER SHOULDERS. PT NOT VERBAL, NODDING HEAD TO ANSWER DIRECT QUESTIONS BY NURSE. PT DID NOT EAT DINNER.
--- NOTE | 2021-10-16 04:23 | NUR ---
ASSUMED PT CARE AT APPROX. 0030. RECEIVED HANDOFF REPORT FROM JOEY SOMMERS. PT IS ALERT AND ORIENTED X 2 AND EXPERIENCING EXPRESSIVE APHASIA. PT IS ABLE TO ANSWER YES OR NO QUESTIONS BUT IS FORGETFUL AND SLOW TO ANSWER QUESTIONS. PT IS UP TO BATHROOM OR BSC WITH SBA. PT IS COORDINATED AND HAS A STEADY GAIT. ALL NEEDS ARE MET AT THIS TIME. WILL CONTINUE TO OBSERVE FOR ANY CHANGES.
[2021-10-16 07:33] VITALS: BP 129/63
--- NOTE | 2021-10-16 18:15 | NUR ---
assumed care of pt at 0700. no apparent distress w/ expressive aphasia. able to answer simple questions and cooperate w/ care. up w/ steady gait to bathroom. vitals stable. moderate appetite. remains on room air. no other changes to report.
[2021-10-16 20:15] VITALS: BP 121/62
[2021-10-17 04:45] VITALS: BP 112/64
--- NOTE | 2021-10-17 05:32 | NUR ---
Pt. able to verbalized name and she is at [facility]. Still has expressive aphasia. She nodded her head when asked if she slept well. Cont. on enhanced precaution,afebrile. Tolerating room air well. Bed alarm on for safety. making some progress towardes care plan goals.
[2021-10-17 07:18] VITALS: BP 127/58
[2021-10-17 19:38] VITALS: BP 121/61
[2021-10-17 20:45] VITALS: BP 121/68
--- NOTE | 2021-10-18 07:27 | NUR ---
Patient progressing towards outcome goals. Gait is steady, fal precautions due to forgetfulness. Vital signs stable. Appetite poor, No difficuty swallowing whole pills with water.
[2021-10-18 10:23] VITALS: BP 143/66
--- NOTE | 2021-10-18 15:15 | EKG ---
[address] [employer] [place] [address] ELECTROCARDIOGRAM REPORT Name: BRICE JOSHUA Room #: 364-P ADM IN M.R.#: [id number] Admission: 10/12/21 Attend Phys: Buddy Collins MD Discharge: Date of : 36 Report #: [id number] [facility] Test Date: 2021-10-18 Test Time: 09:38:28 Pat Name: BRICE JOSHUA Department: Room: 364 P Gender: F Mill Oiler: BYRON : 1940 Requested By: Elaine Davey Order Number: [id number] : Geo Downey Measurements Intervals [place] Rate: 53 P: 64 WI: 237 QRS: 8 QRSD: 100 T: -3 QT: 411 QTc: 386 Interpretive Statements Sinus rhythm Prolonged [place] interval Borderline T abnormalities, diffuse leads Minimal ST elevation, inferior leads Compared to ECG 10/15/2021 10:38:06 T-wave abnormality now present ST (T wave) deviation now present Electronically Signed On 10-18-2021 15:15:13 STRETCHING MACHINE OPERATOR by Geo Downey [email or web address] <ELECTRONICALLY SIGNED> By: Geo Downey MD, FAC 10/18/21 1515 0938 0938 Geo Downey MD, [facility] /EPI
[2021-10-18 15:39] VITALS: BP 137/60
[2021-10-18 20:25] VITALS: BP 135/70
--- NOTE | 2021-10-19 03:42 | NUR ---
Slept well during the night. Enhanced precaution dc'd at NE. Pt. remains impulsive and has expressive aphasia. Tolerating room air well with no respiratory distress. Bed alarm on. Making some progress towards care plan goals.
[2021-10-19 04:48] LABS: CALCIUM 8.9 mg/dL (8.5-10.1); CREATININE 0.7 mg/dL (0.6-1.0); MAGNESIUM 2.2 mg/dL (1.8-2.4); POTASSIUM 4.4 mmol/L (3.5-5.1)
[2021-10-19 04:49] LABS: ABSOLUTE NEUTROPHILS 2.1 thou/uL (1.4-8.2); BASOPHILS 0.6 % (0.0-2.0); EOSINOPHILS 1.4 % (0.0-3.0); HEMOGLOBIN 12.8 gm/dL (12.0-15.0); LYMPHOCYTES 31.6 % (24.0-44.0); MCH 30.6 pg (26.0-34.0); MCHC 32.7 g/dL (28.0-37.0); MCV 93.4 fL (80.0-100.0); MONOCYTES 13.4 % (1.0-8.0); PLATELET COUNT 185 thou/uL (150-400); RBC 4.18 mil/uL (4.20-5.00); RDW 13.9 % (10.5-14.5)
[2021-10-19 08:06] VITALS: BP 143/59
--- NOTE | 2021-10-19 12:13 | NUR ---
Cm notified by NOXIOUS WEEDS AND PEST INSPECTOR that she spoke with patient and her son will be able to transport her to outpatient speech therapy. She does not have a qualifying need for ability lexi related to only requiring speech therapy. Patient is up adlib in the room, cont. on covid isolation. Dc date 10/21/21 with outpt speech therapy. Patient and son agree with the discharge plan.
[2021-10-19 14:30] VITALS: BP 135/81
--- NOTE | 2021-10-19 14:45 | NUR ---
PT ARRIVED FROM [facility]. PT WAS UP WALKING AROUND IN THE ROOM AND WAS WANTING TO KNOW WHAT TO DO. PT DOES HAVE APHASIA, NOT SEEN DURING ASSESSMENT. PT WAS GIVEN FRESH WATER AND VS AND WT TAKEN. PT SHOWN THE BED AND SAID THAT IS YOUR BED YOU WILL BE SLEEPING IN, PT LAID DOWN AND COVERED SELF UP.
--- NOTE | 2021-10-19 18:27 | NUR ---
PT CAME OUT OF ROOM TO SEE WHAT SHE NEEDED HELP WITH. PT DIDN'T KNOW WHEN SHE WAS GOING TO BE DISCHARGED TO HOME, PT THOUGHT IT WAS TODAY.
--- NOTE | 2021-10-20 01:17 | NUR ---
assumed care approx 1900 evening 10/19. pt pleasantly confused, up ad rodolfo per day nurse. pt took hs meds crushed with applesauce tolerating well. pt appears to be sleeping soundly. bed alarm on and call light in reach. will continue to monitor.
[2021-10-20 08:00] VITALS: BP 140/76
--- NOTE | 2021-10-20 10:00 | NUR ---
PT FINISHED WITH THERAPY THIS AM. PT SITTING UP IN THE CHAIR. PT TALKING WITH FARZANA HOLLAND. PT HAVING DIFFICULTY COMPLETING ANSWERS TO QUESTIONS. PT LUNGS CLEAR. PT TOOK MEDS CRUSHED IN APPLESAUCE. PT DID HAVE TROUBLE TO WITH MEDS NOT CRUSHED. PT WAS CHEWING MEDS, COLACE AND MSCONTIN MED. PT UP AD PO IN ROOM WITH STEADY GAIT. PT MOD 1 AT THIS TIME.
[2021-10-20 19:24] VITALS: BP 114/62
--- NOTE | 2021-10-21 01:06 | NUR ---
ASSUMED CARE AT 1930 OF 10/20. PATIENT WAS RECEIVED SLEEPING IN CHAIR. CONTINUES TO EXHIBIT EXPRESSIVE APHASIA, ABLE TO ANSWER TO YES OR NO QUESTIONS TO IDENTIFY NEEDS. PATIENT IS MODIFIED INDEPENDENT IN ROOM, ABLE TO REPOSITION SELF IN BED. TOLERATED ORAL MEDS CRUSHED IN APPLE SAUCE. FALL PRECAUTIONS IN PLACE, CALL LIGHT WITHIN REACH. HOURLY ROUNDS CONTINUED, PATIENT SLEEPING SOUNDLY, NON-LABORED BREATHING NOTED. WILL CONTINUE TO MONITOR.
[2021-10-21 08:00] VITALS: BP 108/78
[2021-10-21] MEDS ORDERED: COLACE100 MG PO (08:45)
[2021-10-21] MEDS ORDERED: ADULT LOW DOSE81 MG PO (08:45)
[2021-10-21] MEDS ORDERED: VITAMIN B-12500 MCG PO (08:45)
[2021-10-21] MEDS ORDERED: LIPITOR40 MG PO (08:45)
[2021-10-21] MEDS ORDERED: FOLIC ACID0.4 MG PO (08:45)
--- NOTE | 2021-10-21 09:30 | NUR ---
PT KNOWS WHERE SHE IS. CANNOT STATE NAME OR DATE OF OR YEAR, EXPRESSIVE APHASIA. TAKES MEDS CRUSHED IN . NEEDS QUES TO SWALLOW AT TIMES. PT TO DC HOME TODAY.
--- NOTE | 2021-10-21 09:46 | NUR ---
Jaxon visited with julio about locations choices for outpt speech therapy. patient stated live close to [place] and plan to come here for therapy. Referral to be sent to [facility] outpt therapy.
[2021-10-21 09:48] VITALS: BP 114/62
[2021-10-21 11:12] VITALS: BP 114/62
--- NOTE | 2021-10-21 18:14 | NUR ---
PT DC'S HOME WITH SON. FRANCISCO CARTER UNDERSTANDONG OF MEDICATIONS AND FOLLOW UP APPOINTMENTS WITH CARDIOLOGY AND TO MAKE APPOINTMENT WITH PT'S OWN PCP WITHIN 7 DAYS OF DC.
== END 2021-10-21 18:17 | disposition home or self-care (01) | DRG 947 ==
LOC: 3W 18:20 → ADMC 10-13 11:22 → 3W 10-13 11:27
PROVIDERS: Nurse Practitioner; Nurse Practitioner Family; ADMIT Physical Medicine & Rehabilitation; ATTEND Physical Medicine & Rehabilitation
DX: R53.81 Other malaise (principal); I63.89 Other cerebral infarction; N39.0 Urinary tract infection, site not specified; R47.01 Aphasia; R48.2 Apraxia; R13.10 Dysphagia, unspecified; G89.29 Other chronic pain; M54.9 Dorsalgia, unspecified; R15.9 Full incontinence of feces; R00.1 Bradycardia, unspecified; E87.6 Hypokalemia; E78.00 Pure hypercholesterolemia, unspecified; R32 Unspecified urinary incontinence; E55.9 Vitamin D deficiency, unspecified; M47.9 Spondylosis, unspecified; B96.20 Unspecified Escherichia coli [E. coli] as the cause of diseases classified elsewhere; G31.84 Mild cognitive impairment of uncertain or unknown etiology; R26.9 Unspecified abnormalities of gait and mobility; E03.9 Hypothyroidism, unspecified; I10 Essential (primary) hypertension; Z79.899 Other long term (current) drug therapy; Z79.01 Long term (current) use of anticoagulants; Z79.82 Long term (current) use of aspirin; Z79.891 Long term (current) use of opiate analgesic; Z96.82 Presence of neurostimulator
CPT/HCPCS: 10112; 10779